=== PATIENT | male | born 1930 | race Caucasian/White ===

== ENCOUNTER 2016-08-03 12:43 | Emergency (ER) | payer OTHER, MEDICAID ==
[~2016-08-03] VITALS: Ht 165.1 cm; Wt 76.0 kg
[~2016-08-03 12:43] MED LIST: AGGR PO; ALLO100T PO; GABA-529 PO
[2016-08-03 14:58] LABS: BASOPHILS % 0.5 % (0.0-2.0); DIFFERENTIAL COMMENT 0; EOSINOPHILS % 0.9 % (0.0-5.0); HEMATOCRIT. 38.3 % (42.0-52.0); HEMOGLOBIN. 12.3 g/dL (14.0-18.0); LYMPHOCYTES % 15.9 % (20.0-50.0); MEAN CORPUSCULAR HEMOGLOBIN 25.4 pg (28.0-32.0); MEAN CORPUSCULAR HGB CONC 32.1 g/dL (31.0-37.0); MEAN PLATELET VOLUME 8.6 fl (7.4-10.4); MONOCYTES % 10.3 % (2.0-8.0); NEUTROPHILS % 72.4 % (40.0-76.0); PLATELET 231 x1000/uL (130-400); RED BLOOD CELL COUNT 4.85 mill/uL (4.7-6.1); RED CELL DISTRIBUTION WIDTH 17.7 % (11.6-14.6); WHITE BLOOD COUNT 9.1 x1000/uL (4.5-11.0)
[2016-08-03 15:07] LABS: CLARITY URINE CLEAR (CLEAR); COLOR URINE DARK YELLOW (YELLOW); GLUCOSE URINE NEGATIVE (NEGATIVE); KETONES URINE NEGATIVE (NEGATIVE); LEUKOCYTE ESTERASE URINE TRACE (NEGATIVE); NITRITE URINE NEGATIVE (NEGATIVE); OCCULT BLOOD URINE TRACE (NEGATIVE); PH URINE 5.5 (4.5-8.0); PROTEIN URINE 2+ (NEGATIVE); SPECIFIC GRAVITY URINE 1.021 (1.005-1.030)
[2016-08-03 15:08] LABS: INR 1.1; PARTIAL THROMBOPLASTIN TIME 27.3 sec (24.0-34.0); PROTHROMBIN TIME 11.4 sec
[2016-08-03 15:36] LABS: CHLORIDE 104 mEq/L (98-107)
[2016-08-03 15:38] LABS: INDEX HEMOLYSI 1 (1-3); INDEX ICTERIC 1 (1-4); INDEX LIPEMIC 1 (1-3)
[2016-08-03 15:47] LABS: ALANINE AMINOTRANSFERASE 11 IU/L (13-61); ALBUMIN 2.9 g/dL (3.4-5.0); ANION GAP 11; CALCIUM 8.3 mg/dL (8.5-10.1); CARBON DIOXIDE 30 mEq/L (21-32); NT PRO B-TYPE NATRIURETIC PEP 6007 pg/mL (5-125); TROPONIN I 0.03 ng/mL (0.00-0.04); UREA NITROGEN BLOOD 17 mg/dL (7-21); eGFR 48 mL/min (>60)
[2016-08-03 15:58] LABS: MUCUS URINE 1+ /lpf (NONE/TRACE); SQUAMOUS EPITHELIAL CELL URINE FEW /lpf (RARE/1+)
[2016-08-03 16:00] LABS: BACTERIA URINE 1+; RBC URINE 0-2 /hpf (0-2); WBC URINE 0-2 /hpf (0-2)
[2016-08-03 18:56] VITALS: BP 155/89
== END 2016-08-03 19:05 | disposition home or self-care (01) ==
LOC: ER 12:59
DX: J40 Bronchitis, not specified as acute or chronic (principal); I13.0 Hypertensive heart and chronic kidney disease with heart failure and stage 1 through stage 4 chronic kidney disease, or unspecified chronic kidney disease; N18.2 Chronic kidney disease, stage 2 (mild); I50.9 Heart failure, unspecified; E11.22 Type 2 diabetes mellitus with diabetic chronic kidney disease; E78.00 Pure hypercholesterolemia, unspecified; M10.9 Gout, unspecified; D50.9 Iron deficiency anemia, unspecified; I44.7 Left bundle-branch block, unspecified; Z95.0 Presence of cardiac pacemaker; I25.10 Atherosclerotic heart disease of native coronary artery without angina pectoris; Z79.82 Long term (current) use of aspirin
CPT/HCPCS: 36415; 71010; 80053; 81001; 82962; 83605; 83880; 84484; 85025; 85610; 85730; 87040; 87086; 93005; 99285

== ENCOUNTER 2016-12-28 13:08 | Inpatient (IN) | payer MEDICARE, MEDICAID ==
[~2016-12-28] VITALS: Ht 157.5 cm; Wt 66.2 kg
[2016-12-28] MEDS ORDERED: KETOROLAC 30MG/ML VIAL IV STA (13:31)
[2016-12-28 14:19] LABS: CARBON DIOXIDE 27 mEq/L (21-32); CHLORIDE 100 mEq/L (98-107); INR 1.1
[2016-12-28 14:20] LABS: BASOPHILS % 0.3 % (0.0-2.0); EOSINOPHILS % 0.1 % (0.0-5.0); HEMOGLOBIN. 12.5 g/dL (14.0-18.0); LYMPHOCYTES % 8.8 % (20.0-50.0); MEAN CORPUSCULAR HEMOGLOBIN 26.3 pg (28.0-32.0); MEAN PLATELET VOLUME 8.5 fl (7.4-10.4); NEUTROPHILS % 77.8 % (40.0-76.0); PLATELET 230 x1000/uL (130-400); RED BLOOD CELL COUNT 4.75 mill/uL (4.7-6.1); RED CELL DISTRIBUTION WIDTH 18.7 % (11.6-14.6)
[2016-12-28 15:03] LABS: CLARITY URINE CLOUDY (CLEAR); COLOR URINE YELLOW (YELLOW); GLUCOSE URINE NEGATIVE (NEGATIVE); KETONES URINE NEGATIVE (NEGATIVE); LEUKOCYTE ESTERASE URINE 2+ (NEGATIVE); NITRITE URINE NEGATIVE (NEGATIVE); OCCULT BLOOD URINE 2+ (NEGATIVE); PH URINE 5.5 (4.5-8.0); PROTEIN URINE 1+ (NEGATIVE); SPECIFIC GRAVITY URINE 1.018 (1.005-1.030)
[2016-12-28] MEDS ORDERED: SODIUM CHLORIDE 0.9% 1,000 ML IV ONE (15:06)
[2016-12-28] MEDS ORDERED: CEFTRIAXONE 1 G PREMIX 50 ML IV ONE (15:15)
[2016-12-28] MEDS ORDERED: CLONIDINE 0.1MG TABLET PO PRN (15:45)
[2016-12-28] MEDS ORDERED: ALLOPURINOL 100 MG TABLET PO SCH (15:45)
[2016-12-28] MEDS ORDERED: ONDANSETRON HCL 4MG/2ML VIAL IV PRN (15:45)
[2016-12-28] MEDS ORDERED: CEFTRIAXONE 1 G PREMIX 50 ML IV SCH (15:45)
[2016-12-28] MEDS ORDERED: ACETAMINOPHEN 325MG TABLET PO PRN (15:45)
[2016-12-28] MEDS ORDERED: IPRATROPIUM/ALBUTEROL 0.5-3(2.5)MG/3ML NEB INH PRN (15:45)
[2016-12-28 16:36] LABS: *AMPHETAMINES SCREEN URINE NEGATIVE (NEGATIVE); *BARBITURATES SCREEN URINE NEGATIVE (NEGATIVE); *BENZODIAZEPINES SCREEN URINE NEGATIVE (NEGATIVE); *COCAINE SCREEN URINE NEGATIVE (NEGATIVE); CANNABINOID URINE SCREEN NEGATIVE (NEGATIVE); METHADONE URINE SCREEN NEGATIVE (NEGATIVE); OPIATES URINE SCREEN NEGATIVE (NEGATIVE); PHENCYCLIDINE URINE SCREEN NEGATIVE (NEGATIVE)
[2016-12-28] MEDS ORDERED: BENA20TA3 PO (18:32)
[2016-12-28] MEDS ORDERED: ATOR10TA69 PO (18:32)
[2016-12-28] MEDS ORDERED: OXYB5TAB11 PO (18:32)
[2016-12-28] MEDS ORDERED: CARV3.1242 PO (18:32)
[2016-12-28] MEDS ORDERED: AMLO10TA80 PO (18:32)
[2016-12-28] MEDS: GABAPENTIN 100MG CAPSULE PO SCH (19:00)
[2016-12-28] MEDS: MULTIVITAMINS,THER W-MINERALS TABLET PO SCH (19:00)
[2016-12-28 19:30] VITALS: BP 147/78
[2016-12-28 20:00] VITALS: BP 147/78
[2016-12-28] MEDS: SODIUM CHLORIDE 0.9% 1,000 ML IV SCH (21:14)
[2016-12-28] MEDS: THIAMINE HCL 100MG TABLET PO SCH (21:15)
[2016-12-28] MEDS: CARVEDILOL 3.125 MG TABLET PO SCH (21:15)
[2016-12-28] MEDS: ASPIRIN/DIPYRIDAMOLE 25MG/200MG CAPSULE SA PO SCH (21:19)
[2016-12-28 23:47] LABS: TROPONIN I 0.03 ng/mL (0.00-0.04)
[2016-12-29] VITALS: BP 120/61
[2016-12-29 04:00] VITALS: BP 137/66
[2016-12-29] MEDS: SODIUM CHLORIDE 0.9% 1,000 ML IV SCH ×3 (06:24→21:14)
[2016-12-29 06:52] LABS: CARBON DIOXIDE 25 mEq/L (21-32); CHLORIDE 104 mEq/L (98-107); CREATINE KINASE 128 IU/L (39-308); HDL CHOLESTEROL 34 mg/dL (40-59); LDL CHOLESTEROL 60 mg/dL (5-100)
[2016-12-29 07:00] LABS: TROPONIN I 0.03 ng/mL (0.00-0.04)
[2016-12-29 07:09] LABS: BASOPHILS % 0.4 % (0.0-2.0); EOSINOPHILS % 2.5 % (0.0-5.0); HEMATOCRIT. 34.4 % (42.0-52.0); HEMOGLOBIN. 11.3 g/dL (14.0-18.0); MEAN CORPUSCULAR HEMOGLOBIN 26.3 pg (28.0-32.0); MEAN CORPUSCULAR VOLUME 79.8 fL (80.0-94.0); MONOCYTES % 12.8 % (2.0-8.0); NEUTROPHILS % 67.3 % (40.0-76.0); PLATELET 202 x1000/uL (130-400); RED BLOOD CELL COUNT 4.31 mill/uL (4.7-6.1); RED CELL DISTRIBUTION WIDTH 18.5 % (11.6-14.6)
[2016-12-29 07:44] VITALS: BP 116/55
[2016-12-29] MEDS: ASPIRIN/DIPYRIDAMOLE 25MG/200MG CAPSULE SA PO SCH (08:12)
[2016-12-29] MEDS: ALLOPURINOL 100 MG TABLET PO SCH (08:13)
[2016-12-29] MEDS: GABAPENTIN 100MG CAPSULE PO SCH ×3 (08:13→17:04)
[2016-12-29] MEDS: CARVEDILOL 3.125 MG TABLET PO SCH ×2 (08:13→22:11)
[2016-12-29] MEDS: AMLODIPINE 10MG TABLET PO SCH (08:13)
[2016-12-29] MEDS: FOLIC ACID 1MG TABLET PO SCH (08:13)
[2016-12-29] MEDS: MULTIVITAMINS,THER W-MINERALS TABLET PO SCH (08:13)
[2016-12-29] MEDS: ATORVASTATIN CALCIUM 10MG TABLET PO SCH (08:13)
[2016-12-29] MEDS: OXYBUTYNIN CHLORIDE 5MG TABLET PO SCH (08:14)
[2016-12-29] MEDS: BENAZEPRIL 20MG TABLET PO SCH (08:14)
[2016-12-29] MEDS: THIAMINE HCL 100MG TABLET PO SCH (08:14)
[2016-12-29 10:59] LABS: BG BASE EXCESS -2.9 mmol/L (-2.0-2.0); BG CARBOXYHEMOGLOBIN 0.3 % (0.5-1.5); BG DEOXYHEMOGLOBIN 5.8 % (0.0-5.0); BG FRACTION INSPIRED OXYGEN 21; BG HCO3 ACT 20.4 mmol/L (22.0-26.0); BG METHEMOGLOBIN 0.3 % (0.0-1.5); BG OXYGEN SATURATION 94.2 % (92.0-98.5); BG OXYHEMOGLOBIN 93.6 % (94.0-97.0); BG PH 7.437 (7.350-7.450); BG PO2 74.1 mmHg (75.0-100.0); BG SAMPLE SITE RIGHT BRACHIAL; BG TOTAL HEMOGLOBIN 11.9 g/dL (12.0-18.0); BG VENT MODE ROOM AIR
[2016-12-29 11:34] VITALS: BP 115/49
[2016-12-29] MEDS ORDERED: POTASSIUM CHLORIDE INJ 40 MEQ in DEXT 5% WATER 250 ML IV NR (14:00)
[2016-12-29] MEDS ORDERED: CEFTRIAXONE 1 G PREMIX 50 ML IV SCH (15:00)
[2016-12-29 15:10] VITALS: BP 102/42
[2016-12-29 20:00] VITALS: BP 118/58
[2016-12-29] MEDS: HYDROCODONE/ACETAMINOPHEN 5/325MG TABLET PO PRN (22:14)
[2016-12-30] VITALS: BP 139/80
[2016-12-30 04:00] VITALS: BP 127/62
[2016-12-30] MEDS: SODIUM CHLORIDE 0.9% 1,000 ML IV SCH ×2 (05:43→17:09)
[2016-12-30 07:34] VITALS: BP 132/65
[2016-12-30] MEDS: MULTIVITAMINS,THER W-MINERALS TABLET PO SCH (09:25)
[2016-12-30] MEDS: OXYBUTYNIN CHLORIDE 5MG TABLET PO SCH (09:25)
[2016-12-30] MEDS: AMLODIPINE 10MG TABLET PO SCH (09:25)
[2016-12-30] MEDS: FOLIC ACID 1MG TABLET PO SCH (09:25)
[2016-12-30] MEDS: GABAPENTIN 100MG CAPSULE PO SCH ×3 (09:25→16:21)
[2016-12-30] MEDS: ALLOPURINOL 100 MG TABLET PO SCH (09:25)
[2016-12-30] MEDS: ASPIRIN/DIPYRIDAMOLE 25MG/200MG CAPSULE SA PO SCH (09:25)
[2016-12-30] MEDS: THIAMINE HCL 100MG TABLET PO SCH (09:25)
[2016-12-30] MEDS: ATORVASTATIN CALCIUM 10MG TABLET PO SCH (09:25)
[2016-12-30] MEDS: CARVEDILOL 3.125 MG TABLET PO SCH ×2 (09:26→20:48)
[2016-12-30] MEDS: BENAZEPRIL 20MG TABLET PO SCH (09:26)
[2016-12-30 11:40] VITALS: BP 138/59
[2016-12-30] MEDS: HYDROCODONE/ACETAMINOPHEN 5/325MG TABLET PO PRN (12:57)
[2016-12-30] MEDS ORDERED: LEVOFLOXACIN 500MG TABLET PO NR (14:00)
[2016-12-30 15:43] VITALS: BP 112/60
[2016-12-30 20:00] VITALS: BP 120/62
[2016-12-31] VITALS: BP 155/77
[2016-12-31 04:00] VITALS: BP 116/65
[2016-12-31] MEDS: SODIUM CHLORIDE 0.9% 1,000 ML IV SCH ×3 (04:57→23:34)
[2016-12-31] MEDS: HYDROCODONE/ACETAMINOPHEN 5/325MG TABLET PO PRN (07:04)
[2016-12-31 07:09] LABS: HEMATOCRIT 34.7 % (42.0-52.0); HEMOGLOBIN 11.2 g/dL (14.0-18.0); MEAN CORPUSCULAR HEMOGLOBIN 26.2 pg (28.0-32.0); MEAN CORPUSCULAR VOLUME 81.1 fL (80.0-94.0); PLATELET 276 x1000/uL (130-400); RED BLOOD CELL COUNT 4.28 mill/uL (4.7-6.1); RED CELL DISTRIBUTION WIDTH 18.6 % (11.6-14.6)
[2016-12-31 07:36] LABS: CARBON DIOXIDE 22 mEq/L (21-32); CHLORIDE 109 mEq/L (98-107)
[2016-12-31 08:00] VITALS: BP 146/68
[2016-12-31] MEDS: BENAZEPRIL 20MG TABLET PO SCH (09:27)
[2016-12-31] MEDS: MULTIVITAMINS,THER W-MINERALS TABLET PO SCH (09:27)
[2016-12-31] MEDS: OXYBUTYNIN CHLORIDE 5MG TABLET PO SCH (09:27)
[2016-12-31] MEDS: ATORVASTATIN CALCIUM 10MG TABLET PO SCH (09:27)
[2016-12-31] MEDS: THIAMINE HCL 100MG TABLET PO SCH (09:27)
[2016-12-31] MEDS: ALLOPURINOL 100 MG TABLET PO SCH (09:27)
[2016-12-31] MEDS: GABAPENTIN 100MG CAPSULE PO SCH ×3 (09:27→17:08)
[2016-12-31] MEDS: AMLODIPINE 10MG TABLET PO SCH (09:27)
[2016-12-31] MEDS: ASPIRIN/DIPYRIDAMOLE 25MG/200MG CAPSULE SA PO SCH (09:27)
[2016-12-31] MEDS: FOLIC ACID 1MG TABLET PO SCH (09:28)
[2016-12-31] MEDS: CARVEDILOL 3.125 MG TABLET PO SCH ×2 (09:28→21:19)
[2016-12-31] MEDS ORDERED: LEVOFLOXACIN 250MG TABLET PO SCH (11:00)
[2016-12-31 12:00] VITALS: BP 128/71
[2016-12-31] MEDS ORDERED: LEVOFLOXACIN 500MG PREMIX 100 ML IV SCH (13:15)
[2016-12-31 16:00] VITALS: BP 136/74
[2016-12-31] MEDS: DOCUSATE SODIUM 250MG CAPSULE PO SCH (17:08)
[2016-12-31 20:00] VITALS: BP 139/58
[2017-01-01] VITALS: BP 142/57
[2017-01-01 04:41] VITALS: BP 157/69
[2017-01-01 08:00] VITALS: BP 130/61
[2017-01-01] MEDS: ASPIRIN/DIPYRIDAMOLE 25MG/200MG CAPSULE SA PO SCH (08:37)
[2017-01-01] MEDS: MULTIVITAMINS,THER W-MINERALS TABLET PO SCH (08:38)
[2017-01-01] MEDS: CARVEDILOL 3.125 MG TABLET PO SCH (08:38)
[2017-01-01] MEDS: GABAPENTIN 100MG CAPSULE PO SCH ×2 (08:38→12:37)
[2017-01-01] MEDS: ALLOPURINOL 100 MG TABLET PO SCH (08:38)
[2017-01-01] MEDS: DOCUSATE SODIUM 250MG CAPSULE PO SCH (08:38)
[2017-01-01] MEDS: ATORVASTATIN CALCIUM 10MG TABLET PO SCH (08:38)
[2017-01-01] MEDS: BENAZEPRIL 20MG TABLET PO SCH (08:38)
[2017-01-01] MEDS: THIAMINE HCL 100MG TABLET PO SCH (08:38)
[2017-01-01] MEDS: OXYBUTYNIN CHLORIDE 5MG TABLET PO SCH (08:38)
[2017-01-01] MEDS: FOLIC ACID 1MG TABLET PO SCH (08:38)
[2017-01-01] MEDS: AMLODIPINE 10MG TABLET PO SCH (08:39)
[2017-01-01] MEDS: SODIUM CHLORIDE 0.9% 1,000 ML IV SCH (10:43)
[2017-01-01] MEDS ORDERED: LEVOFLOXACIN 250MG PREMIX 50 ML IV SCH (11:00)
[2017-01-01 12:00] VITALS: BP 131/58
[2017-01-01] MEDS ORDERED: LEVO750T21 PO (12:22)
[2017-01-01 13:51] LABS: HEMATOCRIT 31.5 % (42.0-52.0); HEMOGLOBIN 10.5 g/dL (14.0-18.0); MEAN CORPUSCULAR HEMOGLOBIN 26.7 pg (28.0-32.0); MEAN CORPUSCULAR VOLUME 79.9 fL (80.0-94.0); PLATELET 289 x1000/uL (130-400); RED BLOOD CELL COUNT 3.94 mill/uL (4.7-6.1); RED CELL DISTRIBUTION WIDTH 18.4 % (11.6-14.6)
[2017-01-01 14:23] LABS: CARBON DIOXIDE 22 mEq/L (21-32); CHLORIDE 112 mEq/L (98-107)
[2017-01-01 14:38] VITALS: BP 131/58
[2017-01-01 16:00] VITALS: BP 131/62
== END 2017-01-01 17:40 | disposition home or self-care (01) | DRG 871 ==
LOC: ER 13:08 → 6WST 15:39 → EDBEDREQ 15:41 → EDBEDREQTM 15:41 → ENRESERV 17:12
PROVIDERS: ADMIT Internal Medicine; ATTEND Internal Medicine
DX: A41.9 Sepsis, unspecified organism (principal); N17.0 Acute kidney failure with tubular necrosis; I13.0 Hypertensive heart and chronic kidney disease with heart failure and stage 1 through stage 4 chronic kidney disease, or unspecified chronic kidney disease; N39.0 Urinary tract infection, site not specified; I49.5 Sick sinus syndrome; I50.9 Heart failure, unspecified; E11.9 Type 2 diabetes mellitus without complications; E78.00 Pure hypercholesterolemia, unspecified; E87.6 Hypokalemia; E86.0 Dehydration; N18.9 Chronic kidney disease, unspecified; Z95.0 Presence of cardiac pacemaker; Z79.82 Long term (current) use of aspirin; Z79.899 Other long term (current) drug therapy
CPT/HCPCS: 36415; 36600; 71010; 73560; 80053; 80061; 80305; 81001; 82375; 82550; 82805; 82962; 83605; 84443; 84484; 85025; 85027; 85610; 87040; 87077; 87086; 87186; 93005; 93970; 94640; 94664; 96365; 96375; 97162; 97166; 99291; A6261; C1893; J0696; J1885; J1956; J3480; J7030; J7060; J7620